=== PATIENT | male | born 1995 | race Hispanic/Latino ===

== ENCOUNTER 2017-08-31 22:52 | Emergency (ER) | payer OTHER ==
[2017-08-31] MEDS ORDERED: ACETAMINOPHEN-CODEINE ELIXIR 5 ML UDCUP ONE (23:02)
== END 2017-08-31 23:28 | disposition home or self-care (01) ==
LOC: EDH 22:52
DX: S80.02XA Contusion of left knee, initial encounter (principal); V49.59XA Passenger injured in collision with other motor vehicles in traffic accident, initial encounter; Y93.89 Activity, other specified; Y92.89 Other specified places as the place of occurrence of the external cause; Y99.8 Other external cause status